=== PATIENT | female | born 1950 | race Caucasian/White ===

== ENCOUNTER 2024-01-23 03:50 | Observation (INO) ==
[2024-01-23 05:16] LABS: Hematocrit 25.7 % (35-45); Hemoglobin 8.5 g/dL (11.5-14.3); Mean Corpuscular Hemoglobin 26.3 pg (27-33); Mean Corpuscular Hgb Conc 33.1 g/dL (31-36); Mean Corpuscular Volume 79.4 fL (80-97); Mean Platelet Volume 7.4 fL (7.5-11.2); Platelet Count 196 10^3/uL (150-450); Red Blood Count 3.24 10^6/uL (3.63-4.92); Red Cell Distribution Width 16.1 % (12-17); White Blood Count 7.9 10^3/uL (3.8-11.8)
[2024-01-23] MEDS: NS 0.9% 1000 ml BAG 1,000 ML IV ONE (05:38)
[2024-01-23 05:48] LABS: Albumin 3.4 g/dL (3.2-5.2); Albumin/Globulin Ratio 1.5 (1-3); C Reactive Protein 19.06 mg/L (<8.01); Calcium 8.7 mg/dL (8.6-10.3); Creatinine, Serum 1.23 mg/dL (0.51-0.95); Globulin 2.2 g/dL (2-4); Potassium 3.5 mmol/L (3.5-5.0); Total Bilirubin 1.2 mg/dL (0.2-1.0); Total Protein 5.6 g/dL (6.4-8.9); eGFR CKD-EPI 46.1 (>60)
[2024-01-23 05:52] LABS: Activated Partial Thrombo Time 52.5 seconds (26.0-38.0); INR 1.16 (0.83-1.13)
[2024-01-23 06:17] LABS: Urine Appearance Clear; Urine Bacteria Absent /HPF (Absent); Urine Bilirubin 1+ (Negative); Urine Blood Negative (Negative); Urine Color Yellow; Urine Glucose Negative (Negative); Urine Ketones Negative (Negative); Urine Nitrite Negative (Negative); Urine Protein 1+ (>=30 mg/dL) (Negative); Urine Red Blood Cell Absent /HPF (0-Trace); Urine Specific Gravity >1.050 (1.002-1.030); Urine Squamous Epithelial Cell Present /HPF (Absent); Urine Urobilinogen 1+ (Negative); Urine White Blood Cell Absent /HPF (0-Trace); Urine pH 6.5 (5.0-8.0)
[2024-01-23 06:49] LABS: ABS Lymphocytes 0.2 10^3/uL (1.0-4.8); ABS Monocytes 0.1 10^3/uL (0.0-0.9); ABS Neutrophils 7.6 10^3/uL (1.5-7.6); Lymphocyte % 2.1 %; Nucleated Red Blood Cells % 0.1 %/100WBC (0.0-0.8); RBC Morphology Normal (Normal)
[2024-01-23 07:17] LABS: High Sensitivity Troponin 1 Hr 220 pg/mL (<15)
[2024-01-23] MEDS ORDERED: Sulfur Hexaflouride MICROSPHR 25 MG VIAL ONE (13:01)
[2024-01-23] MEDS: Aspirin EC 81 mg TAB.EC (enteric coated) PO SCH (14:11)
[2024-01-23] MEDS: cefTRIAXone 1 gm/50 mL D5W 1 GM/50 ML BAG IV SCH (19:33)
[2024-01-23] MEDS ORDERED: Senna TAB 8.6 mg TAB PO PRN (21:51)
[2024-01-23] MEDS ORDERED: Polyethylene Glycol 3350 17 GM PACKET PO PRN (21:51)
[2024-01-23] MEDS: Enoxaparin 40 MG/0.4 ML SYR SUBCUT SCH (22:14)
[2024-01-23] MEDS: Ondansetron 4 mg VIAL 2 MG/ML 2 ml VIAL IV ONE (22:47)
[2024-01-24 06:38] LABS: Albumin 3.1 g/dL (3.2-5.2); Albumin/Globulin Ratio 1.6 (1-3); Calcium 8.2 mg/dL (8.6-10.3); Creatinine, Serum 1.32 mg/dL (0.51-0.95); Potassium 4.4 mmol/L (3.5-5.0); Total Bilirubin 0.4 mg/dL (0.2-1.0); Total Protein 5.1 g/dL (6.4-8.9); eGFR CKD-EPI 42.4 (>60)
[2024-01-24 08:52] VITALS: BP 120/57
[2024-01-24] MEDS: Cholecalciferol (VIT D3) 1,000 unit TAB PO SCH (08:52)
[2024-01-24] MEDS: Lactated Ringers 1000 ml BAG 1,000 ML IV ONE (08:52)
[2024-01-24] MEDS: cefTRIAXone 1 gm/50 mL D5W 1 GM/50 ML BAG IV SCH (12:47)
== END 2024-01-24 14:13 | disposition home or self-care (01) ==
LOC: EDHOLD 03:50 → ED 03:50 → MEDTELE 11:41
PROVIDERS: ADMIT Internal Medicine; ATTEND Internal Medicine